=== PATIENT | male | born 1945 | race Caucasian/White ===

== ENCOUNTER 2022-09-26 13:55 | Outpatient (OUT) | payer MEDICARE, SELFPAY ==
--- NOTE | 2022-09-26 13:56 | XR_ITS ---
The [address] [address] Patient Name: RENATE CARDENAS MRN: [id number] date: 1945 Sex: M Assigned Patient Location: [facility] Current Patient Location: [facility] Accession/Order Number: [id number] Exam Date: 09/26/2022 13:56 Report Date: 09/27/2022 06:20 At the request of: KOSTA TIWARI Procedure: XR foot RT min 3V EXAM: XR foot RT min 3V, XR ankle RT min 3V HISTORY: RIGHT FOOT PAIN COMPARISON: 09/05/2022 TECHNIQUE: Routine views of the XR foot RT min 3V, XR ankle RT min 3V FINDINGS/ IMPRESSION: 1. Decreased mineralization. 2. No acute fractures. Subtalar and talonavicular joint effusion. Maintained alignment without evidence for hardware complication. 3. Moderate first MTP, tibiotalar, and mild to moderate scattered interphalange joint degeneration. 4. Dorsal forefoot soft tissue swelling. Electronically authenticated by: SHELLIE DIAS Date: 09/27/2022 06:20
--- NOTE | 2022-09-26 13:56 | XR_ITS ---
The [address] [address] Patient Name: RENATE CARDENAS MRN: [id number] date: 1945 Sex: M Assigned Patient Location: [facility] Current Patient Location: [facility] Accession/Order Number: [id number] Exam Date: 09/26/2022 13:56 Report Date: 09/27/2022 06:20 At the request of: KOSTA TIWARI Procedure: XR ankle RT min 3V EXAM: XR foot RT min 3V, XR ankle RT min 3V HISTORY: RIGHT FOOT PAIN COMPARISON: 09/05/2022 TECHNIQUE: Routine views of the XR foot RT min 3V, XR ankle RT min 3V FINDINGS/ IMPRESSION: 1. Decreased mineralization. 2. No acute fractures. Subtalar and talonavicular joint effusion. Maintained alignment without evidence for hardware complication. 3. Moderate first MTP, tibiotalar, and mild to moderate scattered interphalange joint degeneration. 4. Dorsal forefoot soft tissue swelling. Electronically authenticated by: SHELLIE DIAS Date: 09/27/2022 06:20
== END 2022-09-26 13:56 ==
LOC: RAD 13:55
PROVIDERS: PCP Physician Assistant; Visit Provider Physician Assistant
DX: M19.071 Primary osteoarthritis, right ankle and foot (principal)
CPT/HCPCS: 73610; 73630

== ENCOUNTER 2022-12-27 12:53 | Outpatient (OUT) | payer MEDICARE, SELFPAY ==
--- NOTE | 2022-12-27 | XR_ITS ---
The [place] [id number] Patient Name: RENATE CARDENAS MRN: [id number] date: 1945 Sex: M Assigned Patient Location: [facility] Current Patient Location: [facility] Accession/Order Number: [id number] Exam Date: 12/27/2022 13:10 Report Date: 12/27/2022 14:19 At the request of: KENJI DAVALOS Procedure: XR foot RT min 3V PROCEDURE: XR foot RT min 3V DATE: 12/27/2022 12:10 PM CDT COMPARISONS: 09/26/2022 CLINICAL INDICATION: RIGHT FOOT PAIN FINDINGS: There is no evidence of fractures or other acute osseous abnormalities. There is diffuse bone demineralization. There is talonavicular and subtalar fusion. The fusion screws remain in stable alignment when compared to previous exam. The hardware is intact. The osseous structures are in stable alignment. There is a small spur off the posterior inferior os calcis, stable There is evidence of some pes planus deformity, stable. There is prominent soft tissue swelling, stable. There is mid foot degenerative change. There is mild to moderate first metatarsal phalangeal degenerative change. XR/XR foot RT min 3V IMPRESSION: 1. Bone demineralization 2. Scattered degenerative change 3. Midfoot and hindfoot fusion, stable 4. No evidence of acute osseous abnormalities. Electronically authenticated by: NATALIE RENE Date: 12/27/2022 14:19
--- NOTE | 2022-12-27 | XR_ITS ---
The [address] [address] Patient Name: RENATE CARDENAS MRN: [id number] date: 1945 Sex: M Assigned Patient [facility]: [facility] Current Patient Location: [facility] Accession/Order Number: [id number] Exam Date: 12/27/2022 13:10 Report Date: 12/27/2022 14:21 At the request of: KENJI DAVALOS Procedure: XR ankle RT min 3V PROCEDURE: XR ankle RT min 3V DATE: 12/27/2022 12:10 PM CDT COMPARISONS: 09/26/2022 CLINICAL INDICATION: RIGHT ANKLE PAIN FINDINGS: There is no evidence of fractures or other acute osseous abnormalities. There is diffuse bone demineralization. There is diffuse soft tissue swelling about the ankle and visualized portion of the foot There is subtalar and talonavicular fusion, stable. There is mild tibiotalar degenerative change. There is no evidence of erosive osseous lesion or destructive osseous process. The ankle mortise is intact. XR/XR ankle RT min 3V IMPRESSION: Right ankle radiographs are stable from previous exam. Electronically authenticated by: NATALIE RENE Date: 12/27/2022 14:21
== END 2022-12-27 12:54 | disposition home or self-care (01) ==
LOC: RAD 12:53
PROVIDERS: PCP Physician Assistant; Visit Provider Podiatrist Foot & Ankle Surgery
DX: M20.21 Hallux rigidus, right foot (principal); M19.079 Primary osteoarthritis, unspecified ankle and foot
CPT/HCPCS: 73610; 73630

== ENCOUNTER 2023-04-04 13:19 | Outpatient (OUT) | payer MEDICARE, SELFPAY ==
--- NOTE | 2023-04-04 | XR_ITS ---
The [address] [address] Patient Name: RENATE CARDENAS MRN: [id number] date: 1945 Sex: M Assigned Patient Location: [facility] Current Patient Location: [facility] Accession/Order Number: [id number] Exam Date: 04/04/2023 13:32 Report Date: 04/05/2023 23:14 At the request of: KENJI DAVALOS Procedure: XR ankle RT min 3V EXAM: XR ankle RT min 3V HISTORY: The patient is a 77-year-old male with RIGHT ANKLE PAIN COMPARISON: 12/27/2022. FINDINGS: The old ununited fractures off the medial malleolus are unchanged. No acute fractures are seen within the ankle joint. The ankle mortise remains intact and relatively uniform. The syndesmosis is maintained. There are no new findings. XR/XR ankle RT min 3V IMPRESSION: No change. Electronically authenticated by: GABBI OVERTON Date: 04/05/2023 23:14
--- NOTE | 2023-04-04 | XR_ITS ---
The [place] [id number] Patient Name: RENATE CARDENAS MRN: [id number] date: 1945 Sex: M Assigned Patient Location: [facility] Current Patient Location: Accession/Order Number: [id number] Exam Date: 04/04/2023 13:32 Report Date: 04/05/2023 23:12 At the request of: KENJI DAVALOS Procedure: XR foot RT min 3V EXAM: XR foot RT min 3V HISTORY: The patient is a 77-year-old male with RIGHT FOOT PAIN COMPARISON: 12/27/2022. FINDINGS: The screws across the talonavicular joint and subtalar joint are unchanged with no radiographic evidence of hardware loosening or failure. The overall alignment of all of the bones of the right foot are unchanged. No acute or ununited fractures are seen. There are no new findings. XR/XR foot RT min 3V IMPRESSION: No change. Electronically authenticated by: GABBI OVERTON Date: 04/05/2023 23:12
== END 2023-04-04 13:20 | disposition home or self-care (01) ==
LOC: RAD 13:20
PROVIDERS: Visit Provider Podiatrist Foot & Ankle Surgery
DX: M76.821 Posterior tibial tendinitis, right leg (principal); M20.21 Hallux rigidus, right foot
CPT/HCPCS: 73610; 73630